=== PATIENT | female | born 1980 | race Caucasian/White ===

== ENCOUNTER 2018-08-29 15:00 | Emergency (ER) | payer OTHER ==
[2018-08-29 15:06] VITALS: BMI 39.5
[2018-08-29 15:09] VITALS: BP 127/89; PULSE 77; RESP 18; TEMP 98.3; O2SAT 100
[2018-08-29] MEDS ORDERED: Tmp-Smz 800 mg-160 mg DS Tab PO STA (15:37)
--- NOTE | 2018-08-29 15:45 | C.PDOC ---
History Of Present Illness 38 year old female patient presents to the emergency room complaining of swelling and pain of right index finger x2 days ago. Patient denies fever and drainage. Time Seen by Provider: 08/29/18 15:08 Chief Complaint (Nursing): Finger,Hand,&Wrist History Per: Patient History/Exam Limitations: no limitations Onset/Duration Of Symptoms: Days (x2) Current Symptoms Are (Timing): Still Present Past Medical History Reviewed: Historical Data, Nursing Documentation, Vital Signs Vital Signs: Last Vital Signs Temp 98.3 F 08/29/18 15:05 Pulse 77 08/29/18 15:05 Resp 18 08/29/18 15:05 BP 127/89 08/29/18 15:05 Pulse Ox 100 08/29/18 15:05 - [facility] REDUC DISLOC-FOOT/TOE (01/15/14) DELIVERY OF PRODUCTS OF CONCEPTION, EXTERNAL APPROACH (10/29/16) REMOV INT FIX-METAT/TAR (03/29/14) Family History: States: Unknown Family Hx - Social History Hx Alcohol Use: Yes Hx Substance Use: No - Immunization History Hx Tetanus Toxoid Vaccination: No Hx Influenza Vaccination: Yes (2017) Hx Pneumococcal Vaccination: No Review Of Systems Except As Marked, All Systems Reviewed And Found Negative. Constitutional: Negative for: Fever Musculoskeletal: Positive for: Other (swelling and pain on right index finger ) Skin: Negative for: Other (draina) Physical Exam - Physical Exam Appears: Non-toxic, No Acute Distress Skin: Warm, Dry Head: Normacephalic Extremity: Normal ROM (FROm of finger ), Tenderness (to lateral nail margin ), Capillary Refill (<2 sec ), No Deformity, Swelling (to lateral nail margin), Other (questionable minimal fluctuance ) Pulses: Right Radial: Normal Neurological/Psych: Oriented x3, Normal Speech, Normal Cognition, Normal Motor, Normal Sensation ED Course And Treatment O2 Sat by Pulse Oximetry: 100 (RA) Pulse Ox Interpretation: Normal Medical Decision Making Medical Decision Making: Plans: -- Kelfex -- bactrim I&D was attempted but no purulent material was obtained. Disposition - Disposition Referrals: Naomi Tamez MD [Staff Provider] - Disposition: HOME/ ROUTINE Disposition Time: 15:46 Condition: STABLE Additional Instructions: Follow up with the Hand doctor within 1-2 days. Return if worsened. Prescriptions: Cephalexin [Keflex] 500 mg PO BID #13 capsule Sulfamethoxazole/Trimethoprim [Bactrim DS 800 mg-160 mg] 1 tab PO BID #13 tab Instructions: Paronychia (DC) Forms: [facility] (Maltese), Work Excuse - Clinical Impression Clinical Impression: Cellulitis, Paronychia - PA / [employer] / Resident Statement MD/ has reviewed & agrees with the documentation as recorded. - Scribe Statement The provider has reviewed the documentation as recorded by the Steven Peacock Do All medical record entries made by the Steven were at my direction and personally dictated by me. I have reviewed the chart and agree that the record accurately reflects my personal performance of the history, physical exam, medical decision making, and the department course for this patient. I have also personally directed, reviewed, and agree with the discharge instructions and disposition.
[2018-08-29] MEDS ORDERED: Tmp-Smz 800 mg-160 mg DS Tab ONE (15:50)
== END 2018-08-29 15:57 | disposition home or self-care (01) ==
LOC: C.ER 15:00
DX: L03.011 Cellulitis of right finger (principal)